=== PATIENT | male | born 1950 | race African-American/Black ===

== ENCOUNTER 2020-11-16 17:47 | Inpatient (IN) | payer OTHER ==
[2020-11-16] MEDS ORDERED: LACTATED RINGERS SOLUTION 1000 ML INFUS.BAG IV ONE (18:38)
[2020-11-16] MEDS ORDERED: METOCLOPRAMIDE HCL INJECTION 10 MG/2 ML VIAL IVPB ONE (18:51)
[2020-11-16] MEDS ORDERED: METOCLOPRAMIDE HCL INJECTION 10 MG/2 ML VIAL ONE (19:37)
[2020-11-16 20:24] LABS: MONO % 5.1 % (3.8-10.2)
[2020-11-16 20:30] LABS: BASO % 0.6 % (0-2.0); EOS % 1.1 % (0-4.5); HEMATOCRIT 39.5 % (35.4-49); HEMOGLOBIN 12.8 GM/dL (11.7-16.9); INR 1.1 (0.83-1.09); LYMPH % 8.5 % (8-40); MCH 29.4 pg (25.7-33.7); MCHC 32.5 g/dl (32.0-35.9); MEAN CELL VOLUME 90.5 fl (80-96); MEAN PLT VOLUME 10.5 fl (7.5-11.1); NEUT % 84.7 % (42.8-82.8); PLATELET COUNT 185 K/MM3 (134-434); PROTHROMBIN TIME (PATIENT) 13.5 SEC (9.7-13.0); RBC 4.37 M/mm3 (4.00-5.60); RDW 12.6 % (11.9-15.9); WHITE BLOOD COUNT 9.9 K/mm3 (4.0-10.0)
[2020-11-16 20:33] LABS: ACTIVATED PTT 18.4 SECONDS (25.2-36.5)
[2020-11-16 20:43] LABS: CHLORIDE 109 mmol/L (98-107); SODIUM 143 mmol/L (136-145)
[2020-11-16 20:47] LABS: ALBUMIN 3.8 g/dl (3.4-5.0)
[2020-11-16 20:48] LABS: ANION GAP 5 MMOL/L (8-16); BLOOD UREA NITROGEN 14.3 mg/dL (7-18); CO2 28 mmol/L (21-32); GLUCOSE,RANDOM 162 mg/dL (74-106); LIPASE 77 U/L (73-393); MAGNESIUM 2.4 mg/dL (1.8-2.4)
[2020-11-16 20:51] LABS: CREATININE 1.6 mg/dL (0.55-1.3); PHOSPHOROUS 3.8 mg/dL (2.5-4.9); SGOT/AST 10 U/L (15-37); SGPT/ALT 15 U/L (13-61)
[2020-11-16 20:52] LABS: BILIRUBIN,TOTAL 0.9 mg/dL (0.2-1); TOT PROT 7.6 g/dl (6.4-8.2)
[2020-11-16 20:53] LABS: ALK PHOS 79 U/L (45-117)
[2020-11-16 21:17] LABS: PLATELET ESTIMATE NORMAL
[2020-11-17] MEDS: SODIUM CHLORIDE 1,000 ML IV SCH ×3 (03:45→23:00)
[2020-11-17 04:30] VITALS: BMI 28.5
[2020-11-17] MEDS: INSULIN SLIDING SCALE (NOVOLOG) 1 VIAL SQ SCH ×4 (06:20→23:10)
[2020-11-17] MEDS: HEPARIN NA (PORCINE) 5,000 UNITS/ML 1ML VIAL SQ SCH ×3 (06:21→23:09)
[2020-11-17 07:18] LABS: BASO % 0.5 % (0-2.0); EOS % 0.5 % (0-4.5); HEMATOCRIT 35.8 % (35.4-49); HEMOGLOBIN 11.7 GM/dL (11.7-16.9); LYMPH % 19.1 % (8-40); MCHC 32.6 g/dl (32.0-35.9); MEAN PLT VOLUME 10.3 fl (7.5-11.1); MONO % 7.8 % (3.8-10.2); NEUT % 72.1 % (42.8-82.8); PLATELET COUNT 165 K/MM3 (134-434); RBC 3.89 M/mm3 (4.00-5.60); RDW 12.8 % (11.9-15.9); WHITE BLOOD COUNT 7.4 K/mm3 (4.0-10.0)
[2020-11-17 07:41] LABS: ALBUMIN 3.4 g/dl (3.4-5.0); BLOOD UREA NITROGEN 14.3 mg/dL (7-18); CALCIUM 8.7 mg/dL (8.5-10.1); MAGNESIUM 2.3 mg/dL (1.8-2.4)
[2020-11-17 07:42] LABS: CREATININE 1.3 mg/dL (0.55-1.3)
[2020-11-17 07:43] LABS: BILIRUBIN,TOTAL 0.9 mg/dL (0.2-1)
[2020-11-17 07:45] LABS: CHOLESTEROL 110 mg/dL (50-200); PHOSPHOROUS 4.1 mg/dL (2.5-4.9); TRIGLYCERIDES 85 mg/dL (0-150)
[2020-11-17 07:46] LABS: LDL CHOLESTEROL (ONLY SJRH) 59 mg/dL (5-100)
[2020-11-17 07:47] LABS: TOT PROT 6.8 g/dl (6.4-8.2)
[2020-11-17 07:48] LABS: HDL CHOLESTEROL 34 mg/dL (40-60)
[2020-11-17] MEDS: ASPIRIN 81 MG CHEWABLE TABLETS PO SCH (15:08)
[2020-11-17] MEDS: ATORVASTATIN CA 80 MG TABLET (FP) PO SCH (23:09)
[2020-11-18] MEDS ORDERED: LABETALOL HCL 5 MG/1 ML (100MG/20 ML VIAL) IVPUSH PRN (04:00)
[2020-11-18] MEDS: HEPARIN NA (PORCINE) 5,000 UNITS/ML 1ML VIAL SQ SCH ×3 (06:35→22:36)
[2020-11-18] MEDS: INSULIN SLIDING SCALE (NOVOLOG) 1 VIAL SQ SCH ×5 (07:20→22:36)
[2020-11-18 07:22] LABS: BASO % 0.6 % (0-2.0); EOS % 2.5 % (0-4.5); HEMATOCRIT 35.2 % (35.4-49); HEMOGLOBIN 11.5 GM/dL (11.7-16.9); LYMPH % 38.2 % (8-40); MCH 30.2 pg (25.7-33.7); MCHC 32.7 g/dl (32.0-35.9); MEAN CELL VOLUME 92.4 fl (80-96); MEAN PLT VOLUME 10.3 fl (7.5-11.1); MONO % 8.1 % (3.8-10.2); NEUT % 50.6 % (42.8-82.8); PLATELET COUNT 164 K/MM3 (134-434); RBC 3.81 M/mm3 (4.00-5.60); RDW 12.6 % (11.9-15.9); WHITE BLOOD COUNT 4.5 K/mm3 (4.0-10.0)
[2020-11-18 07:50] LABS: ALBUMIN 3.3 g/dl (3.4-5.0); BLOOD UREA NITROGEN 14.1 mg/dL (7-18); CALCIUM 8.4 mg/dL (8.5-10.1)
[2020-11-18 07:53] LABS: CREATININE 1.2 mg/dL (0.55-1.3); MAGNESIUM 2.2 mg/dL (1.8-2.4)
[2020-11-18 07:54] LABS: PHOSPHOROUS 4.2 mg/dL (2.5-4.9)
[2020-11-18 07:55] LABS: BILIRUBIN,TOTAL 0.9 mg/dL (0.2-1); TOT PROT 6.6 g/dl (6.4-8.2)
[2020-11-18] MEDS: LISINOPRIL 10 MG TABLET PO SCH (09:53)
[2020-11-18] MEDS: ASPIRIN 81 MG CHEWABLE TABLETS PO SCH (09:53)
[2020-11-18] MEDS ORDERED: amLODIPine BESYLATE 5 MG TABLET (FP) PO SCH (10:00)
[2020-11-18] MEDS ORDERED: amLODIPine BESYLATE 5 MG TABLET (FP) PO ONE (11:03)
[2020-11-18 11:41] LABS: URINE APPEARANCE CLEAR; URINE BILIRUBIN NEGATIVE (NEGATIVE); URINE COLOR YELLOW; URINE GLUCOSE (UA) TRACE (NEGATIVE); URINE KETONE NEGATIVE (NEGATIVE); URINE LEUK ESTERASE NEGATIVE (NEGATIVE); URINE NITRITE NEGATIVE (NEGATIVE); URINE PROTEIN NEGATIVE (NEGATIVE)
[2020-11-18 11:44] LABS: URINE BARBITURATES NEGATIVE ng/ml (CUTOFF=200); URINE BENZODIAZEPINES NEGATIVE ng/ml (CUTOFF=200)
[2020-11-18 11:45] LABS: OPIATES, URI NEGATIVE ng/ml (CUTOFF=300); PHENCYCLIDINE,URINE NEGATIVE ng/ml (CUTOFF=25)
[2020-11-18 11:54] LABS: COCAINE, UR NEGATIVE ng/ml (CUTOFF=300); METHADONE, UR NEGATIVE ng/ml (CUTOFF=300); URINE AMPHETAMINES NEGATIVE ng/ml (CUTOFF=500)
[2020-11-18] MEDS ORDERED: ATORVASTATIN CA 20 MG TABLET (FP) PO SCH (22:30)
[2020-11-18] MEDS: ATORVASTATIN CA 80 MG TABLET (FP) PO SCH (22:31)
[2020-11-19 06:09] VITALS: TEMP 98.3
[2020-11-19] MEDS: HEPARIN NA (PORCINE) 5,000 UNITS/ML 1ML VIAL SQ SCH (06:17)
[2020-11-19] MEDS: INSULIN SLIDING SCALE (NOVOLOG) 1 VIAL SQ SCH (06:17)
[2020-11-19 07:03] LABS: BASO % 0.7 % (0-2.0); EOS % 4.6 % (0-4.5); HEMATOCRIT 35.2 % (35.4-49); HEMOGLOBIN 11.9 GM/dL (11.7-16.9); LYMPH % 38.7 % (8-40); MCH 30.2 pg (25.7-33.7); MCHC 33.7 g/dl (32.0-35.9); MEAN CELL VOLUME 89.7 fl (80-96); MEAN PLT VOLUME 9.9 fl (7.5-11.1); MONO % 8.6 % (3.8-10.2); NEUT % 47.4 % (42.8-82.8); PLATELET COUNT 174 K/MM3 (134-434); RBC 3.92 M/mm3 (4.00-5.60); RDW 12.2 % (11.9-15.9)
[2020-11-19 07:28] LABS: ALBUMIN 3.3 g/dl (3.4-5.0); CALCIUM 8.2 mg/dL (8.5-10.1)
[2020-11-19 07:29] LABS: BLOOD UREA NITROGEN 14.4 mg/dL (7-18)
[2020-11-19 07:31] LABS: BILIRUBIN,TOTAL 0.9 mg/dL (0.2-1); CREATININE 1.1 mg/dL (0.55-1.3)
[2020-11-19 07:32] LABS: PHOSPHOROUS 5.2 mg/dL (2.5-4.9)
[2020-11-19 07:33] LABS: TOT PROT 6.8 g/dl (6.4-8.2)
[2020-11-19 08:04] VITALS: BP 152/90; PULSE 72
[2020-11-19] MEDS: ASPIRIN 81 MG CHEWABLE TABLETS PO SCH (09:04)
[2020-11-19] MEDS: LISINOPRIL 10 MG TABLET PO SCH (09:04)
[2020-11-19] MEDS ORDERED: amLODIPine BESYLATE 5 MG TABLET (FP) PO SCH (10:00)
== END 2020-11-19 10:52 | disposition home or self-care (01) | DRG 66 ==
LOC: JER 17:47 → JERBED 21:22 → J4W 11-17 03:21 → OBSVTOIN 11-18 09:20
PROVIDERS: ADMIT Internal Medicine; ATTEND Student in an Organized Health Care Education/Training Program
DX: I63.9 Cerebral infarction, unspecified (principal); E86.1 Hypovolemia; R55 Syncope and collapse; E86.0 Dehydration; E86.9 Volume depletion, unspecified; I25.10 Atherosclerotic heart disease of native coronary artery without angina pectoris; H40.9 Unspecified glaucoma; E11.40 Type 2 diabetes mellitus with diabetic neuropathy, unspecified; I16.0 Hypertensive urgency; E07.9 Disorder of thyroid, unspecified
CPT/HCPCS: 36415; 70450-TC; 70490-TC; 70551-TC; 71046-TC-FY; 72125-TC; 76775-TC; 80053; 80061; 80307; 81003; 82550; 82607; 82962; 83036; 83690; 83721; 83735; 84100; 84439; 84443; 84481; 84484; 85025; 85610; 85730; 93005; 93010; 93306-TC; 93880-TC; 97116-GP; 97161-GP; 99285-25; C9803; G0378; J1644; U0003; U0005